=== PATIENT | female | born 1945 | race Caucasian/White ===

== ENCOUNTER 2018-08-05 10:28 | Inpatient (IN) ==
--- NOTE | 2018-08-05 11:02 | DR.GENAD ---
HPI - PCP Primary Care Physician: NFD - Complaint/Symptoms Chief Complaint Doctors Comments: Patient is complaining of a large lesion on her left breast with drainage since [place] about five months ago. States she notice a bump that got larger and started to spread to her right breast with sores that she has been trying to manage at home. states she do not have a local doctor. She denies chiest pain, fever, chills, cold, or cough. Patient states the left breast has started draining more the last two weeks but she did not go to a doctor because she did not want them to think she was looking for pain pills. States her sister or breast cancer when she was in her sixties. Patient denies tobacco or alcohol usage. states her last tetanus was over five years ago. Chief Complaint:: PT C/O WOUND TO HER LEFT BREAST BLEEDING , A LARGE NECROTIC WOUND NOTED AND YELLOW SLOTH, BR Self Treatment fo Chief Complaint: PT C/O WOUND GETTING WORSE OVER THE PAST 1.5 MONTHS AND PT C/O IT STATED A BUMP. AND PT HAS PITTING EDEMA TO HER LEFT HAND ,BR - Nurses notes reviewed Nurses Notes Review: Yes - Source History Provided: Patient - Mode of Arrival Mode of Arrival: Ambulatory - Timing Onset of Chief Complaint: 04/18/18 Came on: Gradually - Duration Duration: Constant How lon Duration: Weeks - Location Location: left breast and chest - Severity Severity: Moderate, Severe - Modifying Factors Worsens:: nothing Improves:: nohting PMH - PMH Past Medical History: No Past Surgical History: No - Family History History of Family Medical Conditions: No - Social History Does patient currently use any type of tobacco product: No Have you used tobacco products in the last 12 months: No Type of Tobacco Use: None Does any household member use tobacco: No Alcohol Use: None Do you use any recreational Drugs:: No Lives With: Family Lives Where: Home - infectious screening In the last 2 months have you had wt loss of >10#?: NO Have you had fever, night sweats or hemotysis?: No Have you traveled outside the country in the last 6 months?: No Isolation: Standard ROS - Review of Systems Constitutional: No Symptoms Reported Eyes: No Symptoms Reported. negative: See HPI, Eye Pain, Blurred Vision, Tearing, Discharge, Photophobia, Diplopia, Other ENTM: No Symptoms Reported Respiratoy: No Symptoms Reported. negative: See HPI, Productive Cough, Non- Productive Cough, Moist Cough, Dry Cough, Hacking Cough, Barking Cough, Brassy Cough, Orthopnea, Short of Breath, Stridor, Wheezing, Hemoptysis, Other Cardiovascular: No Symptoms Reported, Chest Pain Gastrointestinal/Abdominal: No Symptoms Reported. negative: See HPI, Abdominal Pain, Constipation, Diarrhea, Nausea, Vomiting, Food Intolerance, Other Genitourinary: No Symptoms Reported Neurological: No Symptoms Reported Musculoskeletal: No Symptoms Reported Integumentary: No Symptoms Reported, Lesions (left breast necrotic with fowl odor; right breast with multiple red lesions), Wound (left breast necrotic with nipple eroded) Hematologic/Lymphatic: No Symptoms Reported Endocrine: No Symptoms Reported Psychiatric: No Symptoms Reported. negative: See HPI, Anxiety, Depression, Hallucinations, Excessive crying, Suicidal, Other PE - General Limitations: No Limitations General Appearance: Alert, In Distress (moderate) - Head Head Exam: Normal Inspection, Atraumatic, Normocephalic - Eyes Eye exam: Normal Appearance, PERRL, EOMI. negative: Scleral Icterus, Conjunctival Injection, Nystagmus, Miosis, Mydrasis, Periorbital Swelling, Periorbital Tenderness, Other - ENT ENT Exam: Normal Exam, Normal Oropharynx, Normal External Ear Exam, Mucous Membranes Moist, TM's Normal Bilaterally External Ear Exam: Normal External Inspection TM/Canal Exam: Bilateral Normal Nose Exam: Normal Nose Exam Mouth Exam: Normal Inspection. negative: Drooling, Trismus, Lip Swelling, Tongue Elevation, Tongue Swelling, Laceration, Other Throat Exam: Normal Inspection. negative: Tonsillar Erythema, Tonsillomegaly, Tonsillar Exudate, R Peritonsillar Mass, L Peritonsillar Mass, Muffled Voice, Other - Neck Neck Exam: Normal Inspection, Full ROM, Trachea Midline. negative: Tenderness, Meningismus, Lymphadenopathy, Thyromegaly, Other - Chest Chest Inspection: Normal Inspection, Symmetric Chest Wall Rise, Tenderness (xiphoid fullness with harm mass xiphoid area), Rash (left anterior chest wtih 6cm erythematous ulceration with scant bleeding) - Respiratory Respiratory Exam: Normal Lung Sounds Bilat. negative: Accessory Muscle Use, Chest Wall Tenderness, Prolonged Expiratory Phase, Respiratory Distress, Stridor, Other Respiratory Exam: Bilateral Clear to Auscultation - Cardiovascular Cardiovascular Exam: Regular Rate, Normal Rhythm, Normal Heart Sounds - Abdominal Exam Abdominal Exam: Normal Inspection, Normal Bowel Sounds, Soft Abdominal Tenderness: negative: RUQ, RLQ, LUQ, LLQ, Epigastrium, Suprapubic, Diffuse, Mild, Moderate, Severe, Other - Extremities Extremities Exam: Normal Inspection, Full ROM, Normal Capillary Refill, Edema (left hand and arm with edema 2+). negative: Tenderness (left axillary with hard nodes 6-7 cm, firm) - Back Back Exam: Normal Inspection, Full ROM. negative: Tenderness (left axillary nodules with 3 cm ulceration left scapular area) - Neurologic Neurological Exam: Alert, Oriented X3, CN II-XII Intact, Reflexes Normal. negative: Normal Gait (gait not tested) - Psychiatric Psychiatric Exam: Normal Affect, Normal Mood - Skin Skin Exam: Warm, Dry, Intact, Normal Color. negative: Rash (right breast with multiple 3-4 cm ulcerations with erythema; right breast hard, firm; left breast hard, necrotic at base; nipple gone; eschar at base inner left breast; fowl yellow discharge) - Vital Signs Vitals: Temperature 97.5 F Pulse Rate [Right Brachial] 82 Pulse Rate 93 Respiratory Rate 17 Blood Pressure [Right Arm] 187/77 Blood Pressure 207/82 O2 Sat by Pulse Oximetry 99 Course - Reevaluation 1st: Improved - Consultation Called: 12:41 Call Returned: 12:41 (Dr. Bennett to admit) - Education/Counseling Education/Counseling: Patient, Family Educated On: Treatment, Diagnosis, Needs for Follow Up ROR - Labs Reviewed Laboratory Results Reviewed?: Yes (All labs and x-ray results reviewed and discussed with patient) Result Diagrams: 08/05/18 11:35 08/05/18 11:35 - XRAY XRAY Interpreted by: Radiologist (CXR: Cardiomegaly with findings of COPD; necrotic left breast) - Labs Reviewed Laboratory: WBC 11.7 X10^3/uL (3.6-10.0) H 08/05/18 11:35 RBC 4.15 X10^6/uL (3.5-5.4) 08/05/18 11:35 Hgb 12.6 g/dL (12.0-16.0) 08/05/18 11:35 Hct 37.4 % (36.0-47.0) 08/05/18 11:35 MCV 90.2 fL (80.0-100.0) 08/05/18 11:35 MCH 30.4 pg (27.0-34.0) 08/05/18 11:35 MCHC 33.7 g/dL (33.0-35.0) 08/05/18 11:35 RDW 13.6 % (11.6-16.5) 08/05/18 11:35 Plt Count 324 X10^3/uL (150.0-450.0) 08/05/18 11:35 MPV 8.5 fL (7.4-11.0) 08/05/18 11:35 Neut % (Auto) 76.5 % (42.0-75.0) H 08/05/18 11:35 Lymph % (Auto) 11.6 % (21.0-51.0) L 08/05/18 11:35 Carter % (Auto) 11.1 % (0.0-13.0) 08/05/18 11:35 Eos % (Auto) 0.3 % (0.9-2.9) L 08/05/18 11:35 Baso % (Auto) 0.5 % (0.2-1.0) 08/05/18 11:35 Neut # (Auto) 8.9 x10^3/uL (2.2-4.8) H 08/05/18 11:35 Lymph # (Auto) 1.3 X10^3/uL (1.3-2.9) 08/05/18 11:35 Carter # (Auto) 1.3 x10^3/uL (0.3-0.8) H 08/05/18 11:35 Eos # (Auto) 0.0 x10^3/uL (0.0-0.2) 08/05/18 11:35 Baso # (Auto) 0.1 X10^3/uL (0.0-0.1) 08/05/18 11:35 Absolute Nucleated RBC 0.0 /100WBC 08/05/18 11:35 Sodium 139 mmol/L (136-145) 08/05/18 11:35 Corrected Sodium TNP 08/05/18 11:35 Potassium 3.9 mmol/L (3.5-5.1) 08/05/18 11:35 Chloride 103 mmol/L (98-107) 08/05/18 11:35 Carbon Dioxide 23.2 mmol/L (21-32) 08/05/18 11:35 BUN 11 mg/dL (7-18) 08/05/18 11:35 Creatinine 0.99 mg/dL (0.55-1.02) 08/05/18 11:35 Est GFR (MDRD) Af Amer > 60 (>60) 08/05/18 11:35 Est GFR (MDRD) Non-Af 59 (>60) 08/05/18 11:35 Glucose 107 mg/dL (65-99) H 08/05/18 11:35 Lactic Acid 1.4 mmol/L (0.4-2.0) 08/05/18 11:35 Calcium 9.3 mg/dL (8.5-10.1) 08/05/18 11:35 Corrected Calcium 10.0 mg/dL (8.5-10.1) 08/05/18 11:35 Total Bilirubin 0.70 mg/dL (0.2-1.0) 08/05/18 11:35 AST 42 Units/L (15-37) H 08/05/18 11:35 ALT 19 Units/L (12-78) 08/05/18 11:35 Alkaline Phosphatase 92 Units/L (46-116) 08/05/18 11:35 Total Protein 7.6 g/dL (6.4-8.2) 08/05/18 11:35 Albumin 3.1 g/dL (3.4-5.0) L 08/05/18 11:35 Globulin 4.5 g/dL (2.5-4.5) 08/05/18 11:35 Albumin/Globulin Ratio 0.7 Ratio (1.1-2.1) L 08/05/18 11:35 Amylase 28 Units/L (25-115) 08/05/18 11:35 Lipase 125 Units/L (73-393) 08/05/18 11:35 - Diagnosis Discharge Problem: Cellulitis of left breast, Breast lesion, Cardiomegaly, Essential hypertension COPD (chronic obstructive pulmonary disease) Qualifiers: Emphysema type: unspecified - Discharge Plan Disposition: ADMITTED INPATIENT Condition: Stable - Follow ups/Referrals Follow ups/Referrals: NFD,None [Primary Care Provider] - 3 days - Instructions
[2018-08-05] MEDS ORDERED: ADACEL or BOOSTRIX TDaP VACCINE IM ONE ×2 (11:47→11:48)
[2018-08-05 11:58] LABS: BASOPHILS # (AUTO) 0.1 X10^3/uL (0.0-0.1); BASOPHILS % (AUTO) 0.5 % (0.2-1.0); EOSINOPHILS % (AUTO) 0.3 % (0.9-2.9); HEMATOCRIT 37.4 % (36.0-47.0); HEMOGLOBIN 12.6 g/dL (12.0-16.0); LYMPHOCYTES # (AUTO) 1.3 X10^3/uL (1.3-2.9); LYMPHOCYTES % (AUTO) 11.6 % (21.0-51.0); MEAN CORPUSCULAR HEMOGLOBIN 30.4 pg (27.0-34.0); MEAN CORPUSCULAR HGB CONC 33.7 g/dL (33.0-35.0); MEAN CORPUSCULAR VOLUME 90.2 fL (80.0-100.0); MEAN PLATELET VOLUME 8.5 fL (7.4-11.0); MONOCYTES # (AUTO) 1.3 x10^3/uL (0.3-0.8); MONOCYTES % (AUTO) 11.1 % (0.0-13.0); NEUTROPHILS # (AUTO) 8.9 x10^3/uL (2.2-4.8); NEUTROPHILS % (AUTO) 76.5 % (42.0-75.0); PLATELET COUNT 324 X10^3/uL (150.0-450.0); RED BLOOD COUNT 4.15 X10^6/uL (3.5-5.4); RED CELL DISTRIBUTION WIDTH 13.6 % (11.6-16.5); WHITE BLOOD COUNT 11.7 X10^3/uL (3.6-10.0)
[2018-08-05] MEDS ORDERED: NS 1000 ML 1,000 ML IV SCH (12:00)
[2018-08-05] MEDS ORDERED: CATAPRES TAB 0.2 MG ONE (12:08)
[2018-08-05 12:10] LABS: ALANINE AMINOTRANSFERASE 19 Units/L (12-78); ALBUMIN 3.1 g/dL (3.4-5.0); ALKALINE PHOSPHATASE 92 Units/L (46-116); AMYLASE 28 Units/L (25-115); ASPARTATE AMINO TRANSFERASE 42 Units/L (15-37); BLOOD UREA NITROGEN 11 mg/dL (7-18); CALCIUM 9.3 mg/dL (8.5-10.1); CARBON DIOXIDE 23.2 mmol/L (21-32); CHLORIDE 103 mmol/L (98-107); CREATININE 0.99 mg/dL (0.55-1.02); LIPASE 125 Units/L (73-393); SODIUM 139 mmol/L (136-145); TOTAL PROTEIN 7.6 g/dL (6.4-8.2); eGFR NON BLACK RACES 59 (>60)
--- NOTE | 2018-08-05 12:12 | RAD ---
CHEST RADIOGRAPHS PA AND LATERAL VIEWS CLINICAL HISTORY: 73-year-old female with necrotic wound to her left breast COMPARISON: None. FINDINGS: The cardiopericardial silhouette is enlarged with prominent interstitium and perihilar lung markings and mild flattening of the hemidiaphragms. There is no focal consolidation, pleural effusion or pneumothorax. The lungs are well inflated. Pulmonary vascularity is normal. Exaggerated thoracic kyphosis. Imaged osseous structures are intact. Soft tissues are unremarkable. IMPRESSION: 1. Cardiomegaly with findings suggesting COPD. Reported By:
[2018-08-05] MEDS ORDERED: CATAPRES TAB 0.2 MG PO ONE (12:13)
[2018-08-05 12:16] LABS: LACTIC ACID 1.4 mmol/L (0.4-2.0)
[2018-08-05] MEDS ORDERED: CLEOCIN 600 MG IV PREMIX 600 MG/50 ML BAG IV ONE (12:41)
[2018-08-05] MEDS ORDERED: CLEOCIN VIAL 600 MG ONE (12:42)
[2018-08-05] MEDS ORDERED: NS 100 ML IV 100 ML ONE (12:43)
[2018-08-05] MEDS ORDERED: ZOFRAN TAB 4 MG PO PRN (12:44)
[2018-08-05] MEDS ORDERED: MOTRIN TAB 600 MG PO PRN (12:44)
[2018-08-05] MEDS ORDERED: MORPHINE SULFATE INJ 2 MG INJ IVP PRN (12:44)
[2018-08-05 13:06] LABS: BILIRUBIN,URINE NEGATIVE (NEGATIVE); BLOOD/HEMOGLOBIN,URINE NEGATIVE (NEGATIVE); GLUCOSE, URINE NEGATIVE (NEGATIVE); KETONES,URINE 1+ (NEGATIVE); LEUKOCYTE ESTERASE ,URINE NEGATIVE (NEGATIVE); NITRITES,URINE NEGATIVE (NEGATIVE); PROTEIN,URINE NEGATIVE (NEGATIVE); UROBILINOGEN,URINE NORMAL (NORMAL)
[2018-08-05 13:07] LABS: APPEARANCE,URINE CLEAR (CLEAR); COLOR,URINE YELLOW (YELLOW)
[2018-08-05] MEDS: CLEOCIN VIAL 600 MG 300 MG in D5W 50 ML IV 50 ML IV SCH (15:03)
[2018-08-05 15:10] VITALS: BMI 28.5
[2018-08-05] MEDS ORDERED: MERREM VIAL ONE (15:15)
[2018-08-05] MEDS: MERREM VIAL IVP ONE ×2 (15:18→15:19)
[2018-08-05] MEDS: NS 1/2 1000 ML IV 1,000 ML IV SCH (15:19)
[2018-08-05] MEDS: ZOSYN VIAL 3.375 GRAMS 3.375 G in NS 100 ML IV + SPIKE MINIBAG* 100 ML IV SCH ×2 (15:19→22:00)
[2018-08-05] MEDS ORDERED: NS 1/2 1000 ML IV 1,000 ML ONE (15:22)
[2018-08-05] MEDS ORDERED: CLEOCIN 300 MG IV PREMIX 300 MG/50 ML BAG IV ONE (21:10)
[2018-08-06] MEDS: NS 1/2 1000 ML IV 1,000 ML IV SCH ×3 (00:47→14:09)
[2018-08-06] MEDS: CLEOCIN VIAL 600 MG 300 MG in D5W 50 ML IV 50 ML IV SCH (00:48)
[2018-08-06] MEDS ORDERED: CLEOCIN 300 MG IV PREMIX 300 MG/50 ML BAG IV ONE (05:47)
[2018-08-06] MEDS: ZOSYN VIAL 3.375 GRAMS 3.375 G in NS 100 ML IV + SPIKE MINIBAG* 100 ML IV SCH ×3 (05:53→22:00)
[2018-08-06] MEDS: CLEOCIN 300 MG IV PREMIX 300 MG/50 ML BAG IV SCH ×2 (05:53→14:09)
[2018-08-06 06:02] LABS: BASOPHILS # (AUTO) 0.1 X10^3/uL (0.0-0.1); BASOPHILS % (AUTO) 0.7 % (0.2-1.0); EOSINOPHILS # (AUTO) 0.1 x10^3/uL (0.0-0.2); EOSINOPHILS % (AUTO) 1.2 % (0.9-2.9); HEMATOCRIT 34.5 % (36.0-47.0); HEMOGLOBIN 11.7 g/dL (12.0-16.0); LYMPHOCYTES # (AUTO) 1.1 X10^3/uL (1.3-2.9); LYMPHOCYTES % (AUTO) 13.7 % (21.0-51.0); MEAN CORPUSCULAR HEMOGLOBIN 30.7 pg (27.0-34.0); MEAN CORPUSCULAR VOLUME 90.2 fL (80.0-100.0); MEAN PLATELET VOLUME 8.3 fL (7.4-11.0); MONOCYTES # (AUTO) 0.9 x10^3/uL (0.3-0.8); MONOCYTES % (AUTO) 11.7 % (0.0-13.0); NEUTROPHILS # (AUTO) 5.6 x10^3/uL (2.2-4.8); NEUTROPHILS % (AUTO) 72.7 % (42.0-75.0); PLATELET COUNT 275 X10^3/uL (150.0-450.0); RED BLOOD COUNT 3.82 X10^6/uL (3.5-5.4); RED CELL DISTRIBUTION WIDTH 13.9 % (11.6-16.5); WHITE BLOOD COUNT 7.7 X10^3/uL (3.6-10.0)
[2018-08-06 06:07] LABS: ALANINE AMINOTRANSFERASE 14 Units/L (12-78); ALBUMIN 2.6 g/dL (3.4-5.0); ALKALINE PHOSPHATASE 76 Units/L (46-116); ASPARTATE AMINO TRANSFERASE 38 Units/L (15-37); BLOOD UREA NITROGEN 10 mg/dL (7-18); CALCIUM 8.9 mg/dL (8.5-10.1); CARBON DIOXIDE 23.1 mmol/L (21-32); CHLORIDE 107 mmol/L (98-107); CREATININE 0.95 mg/dL (0.55-1.02); SODIUM 140 mmol/L (136-145); TOTAL PROTEIN 6.4 g/dL (6.4-8.2); eGFR NON BLACK RACES > 60 (>60)
[2018-08-06] MEDS ORDERED: NS 1/2 1000 ML IV 1,000 ML ONE ×2 (06:10→16:34)
[2018-08-06] MEDS ORDERED: NS 100 ML IV 100 ML ONE ×2 (13:11→13:21)
--- NOTE | 2018-08-06 16:26 | CT ---
HISTORY: Chest pain. Necrotic breast. Study: CT chest, abdomen and pelvis with contrast. Dose reduction techniques including Automated Exposure Control (AEC) and adjustment of mA and kV were utilized. Comparison: None. Technique: Multiple axial images of the chest, abdomen, and pelvis were obtained from the thoracic inlet to the pubic symphysis after the administration of IV contrast. Findings: There are multiple bilateral breast masses and diffuse skin thickening of both breasts, left greater than right. The largest breast mass is located on the left measuring up to 7 cm in diameter. There is involvement of the pectoralis muscles bilaterally. There are enlarged lymph nodes involving both axilla and lower cervical regions bilaterally. There are several prominent lymph nodes within the anterior mediastinum. There are coronary artery calcifications. There is no pericardial effusion. There are no filling defects of the central pulmonary arterial system. There is atherosclerotic disease of the thoracic aorta which is nonaneurysmal. Evaluation of the lung parenchyma demonstrates multiple subcentimeter pleural based pulmonary nodules on the left with subsegmental atelectasis/scarring in the left lung base. There is a trace pleural effusion on the left. No parenchymal pulmonary nodules or mass lesions are evident. There are nonspecific hypodense areas involving several lower thoracic vertebral bodies. There is focal fatty infiltration of the liver along the falciform ligament. Otherwise, no intrahepatic biliary ductal dilatation or mass lesion is evident. The gallbladder, pancreas, spleen, adrenal glands and kidneys are unremarkable in their CT appearance. There is nonspecific endometrial thickening of the uterus. The urinary bladder is incompletely distended and not optimally evaluated. The appendix is grossly unremarkable. There is a moderate amount of stool throughout the colon with scattered colonic diverticula noted. There is no evidence of acute diverticulitis. There is no small bowel dilatation. There is no intraperitoneal free air or free fluid. There is atherosclerotic disease of the nonaneurysmal abdominal aorta. There are nonspecific hypodense areas involving several lumbar vertebral bodies with several Schmorl's node present as well. There is grade 1 anterolisthesis of L4 on L5 measuring 3 mm which is thought to be on a degenerative basis. IMPRESSION: Multiple bilateral breast masses and diffuse skin thickening of both breasts, left greater than right. There is involvement the pectoralis muscles bilaterally. Findings are compatible with bilateral breast cancer. Bilateral axillary and cervical lymphadenopathy compatible with miryam metastasis. Prominent anterior mediastinal lymph nodes are present as well and may reflect mediastinal involvement. Nonspecific hypodense lesions involving several thoracic and lumbar vertebral bodies for which bony metastasis cannot be excluded. PET-CT may be of further diagnostic benefit. Nonspecific endometrial thickening of the uterus which should be correlated for clinically to exclude an endometrial neoplasm. Reported By:
--- NOTE | 2018-08-06 17:23 | DR.H&P ---
H&P - History & Physical for Day of: H&P Date: 08/05/18 - Chief Complaint Chief Complaint: LEFT BREAST WOUND, MASS - History of Present Illness History of Present Illness: IS A 73 YEAR OLD WHITE FEMALE WHO PRESENTED TO THE ER WITH COMPLAINTS OF A DRAINING WOUND TO HER LEFT BREAST. THERE IS A NECROTIC WOUND WITH YELLOW SLOUGH NOTED TO THE LEFT BREAST. DRAINAGE HAS A FOUL ODOR. PATIENT REPORTED FINDING A LARGE LESION ON HER LEFT BREAST ABOUT FIVE MONTHS AGO. SHE STATED THAT THE LESION GOT LARGER AND THEN SHE NOTICED LESIONS ON HER RIGHT BREAST. SHE DOES NOT HAVE A LOCAL DOCTOR. SHE HAS A FAMILY HISTORY OF CANCER. ON ARRIVAL, VITALS WERE 97.5-93-20-96%-207/82. LABS WERE OBTAINED. ABNORMAL LAB VALUES INCLUDE THE FOLLOWING: WBC 11.7, GLUCOSE 107, AST 42, ALBUMIN 3.1. BLOOD AND WOUND CULTURE OBTAINED. A CHEST XRAY WAS OBTAINED AND REVEALED: CARDIOMEGALY WITH FINDINGS OF COPD. EKG REVEALED SINUS RHYTHM WITH HR 81. SHE WAS GIVEN MEROPENEM 500MG IV X 1, CLEOCIN 600MG IV X 1, CATAPREX 0.2MG PO X 1, A TETANUS VACCINE, AND STARTED ON NORMAL SALINE AT 75ML/HR. BLOOD PRESSURE DECREASED TO 187/77. SHE WAS ADMITTED FOR FURTHER EVALUATION AND TREAMTENT OF LEFT BREAST CELLULITIS, PROBABLE BREAST CANCER, HYPERTENSION, AND COPD. WE WILL CONSULT . SHE WILL BE STARTED ON CLEOCIN 300MG IV Q8H, ZOSYN 3.375G IV TID, AND 1/2NS AT 125ML.HR. WE PLAN TO FOLLOW UP WITH AM LABS, ABDOMEN/PELVIS CT, CHEST CT, AND CONTINUE TO MONITOR. - Past Surgical History Surgical History: No History - Family History Family Medical History: Cancer, [place], Hypertension - Social History Does patient currently use any type of tobacco product: No Have you used tobacco products in the last 12 months: No Type of Tobacco Use: None Does any household member use tobacco: No Alcohol Use: None Drug Use: None - Medications Home Medications: No Known Drug Allergies Allergy (Verified 08/05/18 10:45) CONTINUE taking the following medications No Home Medications 08/05/18 [History] - Review of Systems Constitutional: See HPI, Weakness. denies: Fever, Chills Eyes: No Symptoms Reported ENT: No Symptoms Reported Respiratory: Shortness of Breath Cardiovascular: No Symptoms Reported Gastrointestinal: No Symptoms Reported Genitourinary: No Symptoms Reported Musculoskeletal: See HPI, Other (LEFT BREAST PAIN ) Skin: See HPI, Wound - Physical Exam Vital Signs: Temperature 98.3 F Pulse Rate [Radial] 92 Pulse Rate [Right Brachial] 81 Pulse Rate 93 Respiratory Rate 18 Blood Pressure [Right Arm] 174/72 Blood Pressure 207/82 O2 Sat by Pulse Oximetry 99 Oriented: Normal Eyes: Normal Ear: Normal Nose: Normal Throat: Normal Respiratory: Diminished Throughout Cardiovascular: Normal. negative: S3, S4, Murmur : Normal Auscultation: Bowel Sounds: Normal Palpation: Normal Tenderness: Normal Skin: Red, Tender, Wound (NECROTIC WOUND TO LEFT BREAST WITH YELLOW SLOUGH) Musculoskeletal: Normal Psychiatric: Normal Mood Description: Calm Affect: Normal Speech Pattern: Clear - Assessment/Plan (1) Cellulitis of left breast Status: Acute Plan: WOUND CARE, IV ANTIBIOTICS, WOUND CULTURES, CONSULT GENERAL SURGERY, CONTINUE TO MONTIOR (2) Breast lesion Status: Acute Plan: CONSULT GENERAL SURGERY FOR BIOPSY, CONTINUE TO MONITOR (3) COPD (chronic obstructive pulmonary disease) Qualifiers: Emphysema type: unspecified Status: Acute Plan: CONTINUE TO MONITOR (4) Essential hypertension Status: Acute Plan: CONTINUE TO MONITOR - Allergies Allergies/Adverse Reactions: Allergies Allergy/AdvReac Type Severity Reaction Status Date / Time No Known Drug Allergies Allergy Verified 08/05/18 10:45
[2018-08-07] MEDS: NS 1/2 1000 ML IV 1,000 ML IV SCH ×2 (00:58→11:25)
[2018-08-07 05:26] LABS: BASOPHILS # (AUTO) 0.1 X10^3/uL (0.0-0.1); BASOPHILS % (AUTO) 1.3 % (0.2-1.0); EOSINOPHILS # (AUTO) 0.2 x10^3/uL (0.0-0.2); EOSINOPHILS % (AUTO) 2.3 % (0.9-2.9); HEMATOCRIT 35.6 % (36.0-47.0); HEMOGLOBIN 12.1 g/dL (12.0-16.0); LYMPHOCYTES % (AUTO) 14.6 % (21.0-51.0); MEAN CORPUSCULAR HEMOGLOBIN 30.9 pg (27.0-34.0); MEAN CORPUSCULAR VOLUME 90.9 fL (80.0-100.0); MEAN PLATELET VOLUME 8.6 fL (7.4-11.0); MONOCYTES # (AUTO) 0.9 x10^3/uL (0.3-0.8); MONOCYTES % (AUTO) 13.1 % (0.0-13.0); NEUTROPHILS # (AUTO) 4.6 x10^3/uL (2.2-4.8); NEUTROPHILS % (AUTO) 68.7 % (42.0-75.0); PLATELET COUNT 290 X10^3/uL (150.0-450.0); RED BLOOD COUNT 3.91 X10^6/uL (3.5-5.4); RED CELL DISTRIBUTION WIDTH 13.8 % (11.6-16.5); WHITE BLOOD COUNT 6.8 X10^3/uL (3.6-10.0)
[2018-08-07] MEDS: ZOSYN VIAL 3.375 GRAMS 3.375 G in NS 100 ML IV + SPIKE MINIBAG* 100 ML IV SCH (05:36)
[2018-08-07 05:39] LABS: ALANINE AMINOTRANSFERASE 12 Units/L (12-78); ALBUMIN 2.5 g/dL (3.4-5.0); ALKALINE PHOSPHATASE 78 Units/L (46-116); ASPARTATE AMINO TRANSFERASE 37 Units/L (15-37); BLOOD UREA NITROGEN 8 mg/dL (7-18); CALCIUM 8.8 mg/dL (8.5-10.1); CARBON DIOXIDE 22.3 mmol/L (21-32); CHLORIDE 108 mmol/L (98-107); CREATININE 1.01 mg/dL (0.55-1.02); SODIUM 141 mmol/L (136-145); TOTAL PROTEIN 6.4 g/dL (6.4-8.2); eGFR NON BLACK RACES 57 (>60)
[2018-08-07] MEDS ORDERED: XYLOCAINE 1 % (PLAIN) ONE (08:08)
[2018-08-07] MEDS ORDERED: BACITRACIN VIAL ONE (08:08)
[2018-08-07] MEDS ORDERED: BACTROBAN TOPICAL OINT ONE (08:08)
[2018-08-07] MEDS ORDERED: DILAUDID INJ ONE ×2 (08:49→09:12)
[2018-08-07] MEDS ORDERED: DILAUDID INJ IVP PRN (09:07)
[2018-08-07] MEDS ORDERED: PHENERGAN INJ 25 MG IM PRN (09:07)
[2018-08-07] MEDS ORDERED: BENADRYL INJ 50 MG VIAL IVP PRN (09:07)
[2018-08-07] MEDS ORDERED: REGLAN INJ 10 MG VIAL IVP PRN (09:07)
[2018-08-07] MEDS ORDERED: ZOFRAN INJ 4 MG VIAL IVP PRN (09:07)
[2018-08-07] MEDS ORDERED: NS IRRIGATION 1000 ML ONE (09:20)
[2018-08-07] MEDS ORDERED: DIPRIVAN VIAL ONE (09:32)
[2018-08-07] MEDS ORDERED: VERSED ONE (09:32)
[2018-08-07] MEDS ORDERED: KETALAR ONE (09:32)
[2018-08-07] MEDS ORDERED: PHARMACY CONSULT - DOSE _____ XX SCH (10:00)
[2018-08-07] MEDS: NORCO 5/325 MG TAB PO PRN (10:30)
--- NOTE | 2018-08-07 10:53 | PCM.PROG ---
Progress Note - Progress Note for Day of Date of Exam: 08/06/18 - Subjective Subjective: WAS ADMITTED FOR LEFT BREAST CELLULITIS AND MULTIPLE LUMPS TO BILATERAL BREAST THAT ARE SUSPECTED TO BE BREAST CANCER. THERE IS ULCERATED SKIN AND DRAINING TO THE LEFT BREAST. THERE IS ALSO BLEEDING NOTED. SHE IS NOTED TO HAVE BILATERAL AXILLARY ADENOPATHY WITH FIXED NODES. LEFT UPPER EXTREMITY IS NOTED WITH EDEMA. SHE REPORTS PAIN TO THE LEFT BREAST AND ARM. HER VITALS THIS MORNING ARE 97.9-84-18-99%-178/79. LABS WERE OBTAINED. ABNROMAL LAB VALUES INCLUDE THE FOLLOWING: HGB 11.7, HCT 34.5, GLUCOSE 104, AST 38, ALBUMIN 2.6. WOUND AND BLOOD CULTURES ARE PENDING. WE OBTAINED AN ABDOMEN/PELVIS CT WITH CONTRAST AND A CHEST CT WITH CONTRAST TODAY. REPORTS REVEALED THE FOLLOWING: Mu ltiple bilateral breast masses and diffuse skin thickening of both breasts, left greater than right. There is involvement the pectoralis muscles bilaterally. Findings are compatible with bilateral breast cancer. Bilateral axillary and cervical lymphadenopathy compatible with miryam metastasis. Prominent anterior mediastinal lymph nodes are present as well and may reflect mediastinal involvement. Nonspecific hypodense lesions involving several thoracic and lumbar vertebral bodies for which bony metastasis cannot be excluded. PET-CT may be of further diagnostic benefit. Nonspecific endometrial thickening of the uterus which should be correlated for clinically to exclude an endometrial neoplasm. CONSULTED WITH PATIENT AND PLANS TO TAKE HER TO THE OR IN THE MORNING TO OBTAIN BIOPSIES UNDER IV SEDATION. WE ARE IN AGREEMENT WITH PLAN. WE WILL OBTAIN A BONE SCAN AND PELVIC ULTRASOUND IN THE MORNING. OTHERWISE, WE PLAN TO FOLLOW UP WITH AM LABS AND CONTINUE TO MONITOR. - Past Medical Family Social History Past Med/Fam/Surg Hx: No changes since H&P Allergies: Allergies No Known Drug Allergies Allergy (Verified 08/05/18 10:45) - Review of Systems ROS: No change since H&P - Vital Signs and I&O's Vital Signs: Temperature 97.6 F Pulse Rate [Radial] 85 Pulse Rate [Right Brachial] 71 Pulse Rate 73 Respiratory Rate 18 Blood Pressure [Right Arm] 154/87 Blood Pressure 161/68 O2 Sat by Pulse Oximetry 100 Intake and Output: Intake & Output 08/04/18 08/05/18 08/06/18 08/07/18 11:59 11:59 11:59 11:59 Intake Total 2288 / 2288 3050 / 3050 Balance 2287 / 305 - Physical Exam Oriented: Normal Eyes: Normal Ear: Normal Nose: Normal Throat: Normal Respiratory: Generalized, Diminished Cardiovascular: Normal. negative: S3, S4, Murmur : Normal Auscultation: Bowel Sounds: Normal Palpation: Normal Tenderness: Normal Skin: Red, Tender, Wound (NECROTIC WOUND TO LEFT BREAST WITH YELLOW SLOUGH) Musculoskeletal: Normal Psychiatric: Normal Mood Description: Calm Affect: Normal Speech Pattern: Clear, Appropriate - Laboratory and Diagnostics Result Diagrams: 08/07/18 05:08 08/07/18 05:08 Labs: 08/07/18 08:39 Breast - Left Gram Stain - Final 08/05/18 11:35 Blood Blood Culture - Preliminary 08/05/18 11:35 Blood Blood Culture - Preliminary 08/05/18 11:07 Breast - Left Gram Stain - Final 08/05/18 11:07 Breast - Left Wound Culture - Preliminary [facility] WBC 6.8 X10^3/uL (3.6-10.0) 08/07/18 05:08 RBC 3.91 X10^6/uL (3.5-5.4) 08/07/18 05:08 Hgb 12.1 g/dL (12.0-16.0) 08/07/18 05:08 Hct 35.6 % (36.0-47.0) L 08/07/18 05:08 MCV 90.9 fL (80.0-100.0) 08/07/18 05:08 MCH 30.9 pg (27.0-34.0) 08/07/18 05:08 MCHC 34.0 g/dL (33.0-35.0) 08/07/18 05:08 RDW 13.8 % (11.6-16.5) 08/07/18 05:08 Plt Count 290 X10^3/uL (150.0-450.0) 08/07/18 05:08 MPV 8.6 fL (7.4-11.0) 08/07/18 05:08 Neut % (Auto) 68.7 % (42.0-75.0) 08/07/18 05:08 Lymph % (Auto) 14.6 % (21.0-51.0) L 08/07/18 05:08 [place] % (Auto) 13.1 % (0.0-13.0) H 08/07/18 05:08 Eos % (Auto) 2.3 % (0.9-2.9) 08/07/18 05:08 Baso % (Auto) 1.3 % (0.2-1.0) H 08/07/18 05:08 Neut # (Auto) 4.6 x10^3/uL (2.2-4.8) 08/07/18 05:08 Lymph # (Auto) 1.0 X10^3/uL (1.3-2.9) L 08/07/18 05:08 [place] # (Auto) 0.9 x10^3/uL (0.3-0.8) H 08/07/18 05:08 Eos # (Auto) 0.2 x10^3/uL (0.0-0.2) 08/07/18 05:08 Baso # (Auto) 0.1 X10^3/uL (0.0-0.1) 08/07/18 05:08 Absolute Nucleated RBC 0.0 /100WBC 08/07/18 05:08 INR Target Range - 08/07/18 05:08 INR 1.12 (0.8-1.3) 08/07/18 05:08 Sodium 141 mmol/L (136-145) 08/07/18 05:08 Corrected Sodium TNP 08/07/18 05:08 Potassium 3.9 mmol/L (3.5-5.1) 08/07/18 05:08 Chloride 108 mmol/L (98-107) H 08/07/18 05:08 Carbon Dioxide 22.3 mmol/L (21-32) 08/07/18 05:08 BUN 8 mg/dL (7-18) 08/07/18 05:08 Creatinine 1.01 mg/dL (0.55-1.02) 08/07/18 05:08 Est GFR (MDRD) Af Amer > 60 (>60) 08/07/18 05:08 Est GFR (MDRD) Non-Af 57 (>60) L 08/07/18 05:08 Glucose 103 mg/dL (65-99) H 08/07/18 05:08 Lactic Acid 1.4 mmol/L (0.4-2.0) 08/05/18 11:35 Calcium 8.8 mg/dL (8.5-10.1) 08/07/18 05:08 Corrected Calcium 10.0 mg/dL (8.5-10.1) 08/07/18 05:08 Total Bilirubin 0.60 mg/dL (0.2-1.0) 08/07/18 05:08 AST 37 Units/L (15-37) 08/07/18 05:08 ALT 12 Units/L (12-78) 08/07/18 05:08 Alkaline Phosphatase 78 Units/L (46-116) 08/07/18 05:08 Total Protein 6.4 g/dL (6.4-8.2) 08/07/18 05:08 Albumin 2.5 g/dL (3.4-5.0) L 08/07/18 05:08 Globulin 3.9 g/dL (2.5-4.5) 08/07/18 05:08 Albumin/Globulin Ratio 0.6 Ratio (1.1-2.1) L 08/07/18 05:08 Amylase 28 Units/L (25-115) 08/05/18 11:35 Lipase 125 Units/L (73-393) 08/05/18 11:35 Specimen Type Clean catch urine 08/05/18 12:48 Urine Color Yellow (YELLOW) 08/05/18 12:48 Urine Appearance Clear (CLEAR) 08/05/18 12:48 Urine pH 6.0 (5.0 - 8.0) 08/05/18 12:48 Ur Specific [place] 1.015 (1.000-1.030) 08/05/18 12:48 Urine Protein Negative (NEGATIVE) 08/05/18 12:48 Urine Glucose (UA) Negative (NEGATIVE) 08/05/18 12:48 Urine Ketones 1+ (NEGATIVE) 08/05/18 12:48 Urine Occult Blood Negative (NEGATIVE) 08/05/18 12:48 Urine Nitrite Negative (NEGATIVE) 08/05/18 12:48 Urine Bilirubin Negative (NEGATIVE) 08/05/18 12:48 Urine Urobilinogen Normal (NORMAL) 08/05/18 12:48 Ur Leukocyte Esterase Negative (NEGATIVE) 08/05/18 12:48 Tissue Pathology To follow 08/07/18 08:42 - Plan (1) Cellulitis of left breast Status: Acute Plan: WOUND CARE, IV ANTIBIOTICS, WOUND CULTURES, CONSULT GENERAL SURGERY, CONTINUE TO MONTIOR (2) Breast lesion Status: Acute Plan: CONSULT GENERAL SURGERY FOR BIOPSY, CONTINUE TO MONITOR (3) COPD (chronic obstructive pulmonary disease) Status: Acute Qualifiers: Emphysema type: unspecified Plan: CONTINUE TO MONITOR (4) Essential hypertension Status: Acute Plan: CONTINUE TO MONITOR
--- NOTE | 2018-08-07 10:57 | PCM.PROG ---
Progress Note - Progress Note for Day of Date of Exam: 08/07/18 - Subjective Subjective: WAS ADMITTED FOR LEFT BREAST CELLULITIS AND MULTIPLE LUMPS TO BILATERAL BREAST THAT ARE SUSPECTED TO BE BREAST CANCER. THERE IS ULCERATED SKIN AND DRAINING TO THE LEFT BREAST. THERE IS ALSO BLEEDING NOTED. SHE IS NOTED TO HAVE BILATERAL AXILLARY ADENOPATHY WITH FIXED NODES. LEFT UPPER EXTREMITY IS NOTED WITH EDEMA. SHE CONTINUES TO REPORT PAIN TO THE LEFT BREAST AND ARM. HER VITALS THIS MORNING ARE 97.7-85-18-99%-154/87. LABS WERE OBTAINED. ABNROMAL LAB VALUES INCLUDE THE FOLLOWING: HCT 35.6, CHLORIDE 108, GLUCOSE 103, ALBUMIN 2.5. WOUND CULTURE REVEALS GROWTH OF CITROBACTER KOSERI. ABDOMEN/PELVIS AND CHEST CT REVEALED METASTATIC DISEASE. PLANS TO TAKE HER TO THE OR TODAY TO OBTAIN BIOPSIES UNDER IV SEDATION. WE ARE IN AGREEMENT WITH PLAN. WE WILL OBTAIN A BONE SCAN AND PELVIC ULTRASOUND TODAY. WE WILL CHANGE HER IV ANTIBIOTICS TO INVANZ 1g IV DAILY. OTHERWISE, WE PLAN TO FOLLOW UP WITH AM LABS AND CONTINUE TO MONITOR. - Past Medical Family Social History Past Med/Fam/Surg Hx: No changes since H&P Allergies: Allergies No Known Drug Allergies Allergy (Verified 08/05/18 10:45) - Review of Systems ROS: No change since H&P - Vital Signs and I&O's Vital Signs: Temperature 97.6 F Pulse Rate [Radial] 85 Pulse Rate [Right Brachial] 71 Pulse Rate 73 Respiratory Rate 18 Blood Pressure [Right Arm] 154/87 Blood Pressure 161/68 O2 Sat by Pulse Oximetry 100 Intake and Output: Intake & Output 08/04/18 08/05/18 08/06/18 08/07/18 11:59 11:59 11:59 11:59 Intake Total 2288 / 2288 3050 / 3050 Balance 2288 / 2288 3050 / 3050 - Physical Exam Oriented: Normal Eyes: Normal Ear: Normal Nose: Normal Throat: Normal Respiratory: Generalized, Diminished Cardiovascular: Normal. negative: S3, S4, Murmur : Normal Auscultation: Bowel Sounds: Normal Tenderness: Normal Skin: Red, Tender, Wound (NECROTIC WOUND TO LEFT BREAST WITH YELLOW SLOUGH) Musculoskeletal: Normal Psychiatric: Normal Mood Description: Calm Affect: Normal Speech Pattern: Clear, Appropriate - Laboratory and Diagnostics Result Diagrams: 08/07/18 05:08 08/07/18 05:08 Labs: 08/07/18 08:39 Breast - Left Gram Stain - Final 08/05/18 11:35 Blood Blood Culture - Preliminary 08/05/18 11:35 Blood Blood Culture - Preliminary 08/05/18 11:07 Breast - Left Gram Stain - Final 08/05/18 11:07 Breast - Left Wound Culture - Preliminary Citrobacter Koseri Laboratory WBC 6.8 X10^3/uL (3.6-10.0) 08/07/18 05:08 RBC 3.91 X10^6/uL (3.5-5.4) 08/07/18 05:08 Hgb 12.1 g/dL (12.0-16.0) 08/07/18 05:08 Hct 35.6 % (36.0-47.0) L 08/07/18 05:08 MCV 90.9 fL (80.0-100.0) 08/07/18 05:08 MCH 30.9 pg (27.0-34.0) 08/07/18 05:08 MCHC 34.0 g/dL (33.0-35.0) 08/07/18 05:08 RDW 13.8 % (11.6-16.5) 08/07/18 05:08 Plt Count 290 X10^3/uL (150.0-450.0) 08/07/18 05:08 MPV 8.6 fL (7.4-11.0) 08/07/18 05:08 Neut % (Auto) 68.7 % (42.0-75.0) 08/07/18 05:08 Lymph % (Auto) 14.6 % (21.0-51.0) L 08/07/18 05:08 [place] % (Auto) 13.1 % (0.0-13.0) H 08/07/18 05:08 Eos % (Auto) 2.3 % (0.9-2.9) 08/07/18 05:08 Baso % (Auto) 1.3 % (0.2-1.0) H 08/07/18 05:08 Neut # (Auto) 4.6 x10^3/uL (2.2-4.8) 08/07/18 05:08 Lymph # (Auto) 1.0 X10^3/uL (1.3-2.9) L 08/07/18 05:08 [place] # (Auto) 0.9 x10^3/uL (0.3-0.8) H 08/07/18 05:08 Eos # (Auto) 0.2 x10^3/uL (0.0-0.2) 08/07/18 05:08 Baso # (Auto) 0.1 X10^3/uL (0.0-0.1) 08/07/18 05:08 Absolute Nucleated RBC 0.0 /100WBC 08/07/18 05:08 INR Target Range - 08/07/18 05:08 INR 1.12 (0.8-1.3) 08/07/18 05:08 Sodium 141 mmol/L (136-145) 08/07/18 05:08 Corrected Sodium TNP 08/07/18 05:08 Potassium 3.9 mmol/L (3.5-5.1) 08/07/18 05:08 Chloride 108 mmol/L (98-107) H 08/07/18 05:08 Carbon Dioxide 22.3 mmol/L (21-32) 08/07/18 05:08 BUN 8 mg/dL (7-18) 08/07/18 05:08 Creatinine 1.01 mg/dL (0.55-1.02) 08/07/18 05:08 Est GFR (MDRD) Af Amer > 60 (>60) 08/07/18 05:08 Est GFR (MDRD) Non-Af 57 (>60) L 08/07/18 05:08 Glucose 103 mg/dL (65-99) H 08/07/18 05:08 Lactic Acid 1.4 mmol/L (0.4-2.0) 08/05/18 11:35 Calcium 8.8 mg/dL (8.5-10.1) 08/07/18 05:08 Corrected Calcium 10.0 mg/dL (8.5-10.1) 08/07/18 05:08 Total Bilirubin 0.60 mg/dL (0.2-1.0) 08/07/18 05:08 AST 37 Units/L (15-37) 08/07/18 05:08 ALT 12 Units/L (12-78) 08/07/18 05:08 Alkaline Phosphatase 78 Units/L (46-116) 08/07/18 05:08 Total Protein 6.4 g/dL (6.4-8.2) 08/07/18 05:08 Albumin 2.5 g/dL (3.4-5.0) L 08/07/18 05:08 Globulin 3.9 g/dL (2.5-4.5) 08/07/18 05:08 Albumin/Globulin Ratio 0.6 Ratio (1.1-2.1) L 08/07/18 05:08 Amylase 28 Units/L (25-115) 08/05/18 11:35 Lipase 125 Units/L (73-393) 08/05/18 11:35 Specimen Type Clean catch urine 08/05/18 12:48 Urine Color Yellow (YELLOW) 08/05/18 12:48 Urine Appearance Clear (CLEAR) 08/05/18 12:48 Urine pH 6.0 (5.0 - 8.0) 08/05/18 12:48 Ur Specific [place] 1.015 (1.000-1.030) 08/05/18 12:48 Urine Protein Negative (NEGATIVE) 08/05/18 12:48 Urine Glucose (UA) Negative (NEGATIVE) 08/05/18 12:48 Urine Ketones 1+ (NEGATIVE) 08/05/18 12:48 Urine Occult Blood Negative (NEGATIVE) 08/05/18 12:48 Urine Nitrite Negative (NEGATIVE) 08/05/18 12:48 Urine Bilirubin Negative (NEGATIVE) 08/05/18 12:48 Urine Urobilinogen Normal (NORMAL) 08/05/18 12:48 Ur Leukocyte Esterase Negative (NEGATIVE) 08/05/18 12:48 Tissue Pathology To follow 08/07/18 08:42 - Plan (1) Cellulitis of left breast Status: Acute Plan: WOUND CARE, IV ANTIBIOTICS, WOUND CULTURES, CONSULT GENERAL SURGERY, CONTINUE TO MONTIOR (2) Breast lesion Status: Acute Plan: CONSULT GENERAL SURGERY FOR BIOPSY, CONTINUE TO MONITOR (3) COPD (chronic obstructive pulmonary disease) Status: Acute Qualifiers: Emphysema type: unspecified Plan: CONTINUE TO MONITOR (4) Essential hypertension Status: Acute Plan: CONTINUE TO MONITOR
[2018-08-07] MEDS ORDERED: NS 1/2 1000 ML IV 1,000 ML ONE (11:21)
[2018-08-07] MEDS: INVANZ INJ 1 GM VIAL 1 GM in NS 100 ML IV + SPIKE MINIBAG* 100 ML IV SCH (12:30)
[2018-08-07] MEDS: LOVENOX INJ 40 MG SYR SC SCH ×2 (12:30→14:06)
[2018-08-07] MEDS: TOPROL XL PO SCH (13:47)
--- NOTE | 2018-08-07 15:43 | US ---
HISTORY: Metastatic disease Study: Non obstetric pelvic ultrasound Comparison: CT scan of the abdomen and pelvis done 08/06/2018. Technique: Trans abdominal grayscale and color Doppler imaging of the pelvis is provided. Findings: Neither ovary is identified. The uterus measures 4.98 x 5.14 x 8.53 cm. There is a mildly hypoechoic solid mass present involving the upper endometrial region measuring up to 2.6 cm in size. This may represent an endometrial cancer or endometrial polyp. Endometrial biopsy or D and C is suggested. No evidence of free cul-de-sac fluid is seen. IMPRESSION: 2.6 cm mildly hypoechoic solid mass involving the upper endometrial region. This may represent either an endometrial cancer or endometrial polyp. Endometrial biopsy or D and C is suggested. Reported By:
[2018-08-07] MEDS ORDERED: NORVASC TAB 5 MG ONE (18:06)
[2018-08-07] MEDS: NORVASC TAB 5 MG PO SCH (18:09)
[2018-08-08] MEDS: NS 1/2 1000 ML IV 1,000 ML IV SCH ×4 (00:04→22:37)
[2018-08-08] MEDS ORDERED: NS 1/2 1000 ML IV 1,000 ML ONE ×2 (03:57→19:42)
[2018-08-08 05:23] LABS: BASOPHILS % (AUTO) 0.5 % (0.2-1.0); EOSINOPHILS # (AUTO) 0.1 x10^3/uL (0.0-0.2); EOSINOPHILS % (AUTO) 1.1 % (0.9-2.9); HEMATOCRIT 33.6 % (36.0-47.0); HEMOGLOBIN 11.4 g/dL (12.0-16.0); LYMPHOCYTES # (AUTO) 0.9 X10^3/uL (1.3-2.9); MEAN CORPUSCULAR HEMOGLOBIN 30.8 pg (27.0-34.0); MEAN CORPUSCULAR VOLUME 90.7 fL (80.0-100.0); MEAN PLATELET VOLUME 8.7 fL (7.4-11.0); MONOCYTES % (AUTO) 11.1 % (0.0-13.0); NEUTROPHILS # (AUTO) 6.6 x10^3/uL (2.2-4.8); NEUTROPHILS % (AUTO) 76.3 % (42.0-75.0); PLATELET COUNT 313 X10^3/uL (150.0-450.0); RED BLOOD COUNT 3.71 X10^6/uL (3.5-5.4); RED CELL DISTRIBUTION WIDTH 13.7 % (11.6-16.5); WHITE BLOOD COUNT 8.6 X10^3/uL (3.6-10.0)
[2018-08-08 05:38] LABS: ALANINE AMINOTRANSFERASE 12 Units/L (12-78); ALBUMIN 2.3 g/dL (3.4-5.0); ALKALINE PHOSPHATASE 70 Units/L (46-116); ASPARTATE AMINO TRANSFERASE 46 Units/L (15-37); BLOOD UREA NITROGEN 7 mg/dL (7-18); CALCIUM 8.5 mg/dL (8.5-10.1); CARBON DIOXIDE 21.5 mmol/L (21-32); CHLORIDE 106 mmol/L (98-107); COR CA(FOR HYPOALB) 9.9 mg/dL (8.5-10.1); CREATININE 0.82 mg/dL (0.55-1.02); SODIUM 139 mmol/L (136-145); eGFR NON BLACK RACES > 60 (>60)
--- NOTE | 2018-08-08 09:56 | DR.PROGNOT ---
Hospital Progress Notes - Progress Note for Day of: Progress Note Date: 08/08/18 - Chief Complaint Chief Complaint: post op multiple bilateral breast Bxs and debridement of infected brest ulcers. - Past Medical Family Social History Past Med/Fam/Surg Hx: No changes since H&P Allergies: Allergies No Known Drug Allergies Allergy (Verified 08/05/18 10:45) - Review Of Systems ROS: No change since H&P - Vital Signs Vital Signs: Temperature 97.7 F Pulse Rate [Radial] 81 Pulse Rate [Right Brachial] 71 Pulse Rate 69 Respiratory Rate 18 Blood Pressure [Right Arm] 159/67 Blood Pressure 168/71 O2 Sat by Pulse Oximetry 96 - Physical Exam Oriented: Normal Eyes: Normal Ear: Normal Nose: Normal Throat: Normal Respiratory: Generalized, Diminished Cardiovascular: Normal. negative: S3, S4, Murmur : Normal GI:Auscultation: Normal GI:Palpation: Normal GI: Tenderness: Normal Skin: Red, Tender, Wound (dressing intact , no active bleeding .) Musculoskeletal: Normal Psychiatric: Normal Mood Description: Calm Affect: Normal Speech Pattern: Clear, Appropriate - Laboratory and Diagnostics Result Diagrams: 08/08/18 04:47 08/08/18 04:47 Labs: 08/07/18 08:39 Breast - Left Gram Stain - Final 08/07/18 08:39 Breast - Left Wound Culture - Preliminary 08/05/18 11:07 Breast - Left Gram Stain - Final 08/05/18 11:07 Breast - Left Wound Culture - Preliminary Citrobacter Koseri 08/05/18 11:35 Blood Blood Culture - Preliminary 08/05/18 11:35 Blood Blood Culture - Preliminary Laboratory WBC 8.6 X10^3/uL (3.6-10.0) 08/08/18 04:47 RBC 3.71 X10^6/uL (3.5-5.4) 08/08/18 04:47 Hgb 11.4 g/dL (12.0-16.0) L 08/08/18 04:47 Hct 33.6 % (36.0-47.0) L 08/08/18 04:47 MCV 90.7 fL (80.0-100.0) 08/08/18 04:47 MCH 30.8 pg (27.0-34.0) 08/08/18 04:47 MCHC 34.0 g/dL (33.0-35.0) 08/08/18 04:47 RDW 13.7 % (11.6-16.5) 08/08/18 04:47 Plt Count 313 X10^3/uL (150.0-450.0) 08/08/18 04:47 MPV 8.7 fL (7.4-11.0) 08/08/18 04:47 Neut % (Auto) 76.3 % (42.0-75.0) H 08/08/18 04:47 Lymph % (Auto) 11.0 % (21.0-51.0) L 08/08/18 04:47 [place] % (Auto) 11.1 % (0.0-13.0) 08/08/18 04:47 Eos % (Auto) 1.1 % (0.9-2.9) 08/08/18 04:47 Baso % (Auto) 0.5 % (0.2-1.0) 08/08/18 04:47 Neut # (Auto) 6.6 x10^3/uL (2.2-4.8) H 08/08/18 04:47 Lymph # (Auto) 0.9 X10^3/uL (1.3-2.9) L 08/08/18 04:47 [place] # (Auto) 1.0 x10^3/uL (0.3-0.8) H 08/08/18 04:47 Eos # (Auto) 0.1 x10^3/uL (0.0-0.2) 08/08/18 04:47 Baso # (Auto) 0.0 X10^3/uL (0.0-0.1) 08/08/18 04:47 Absolute Nucleated RBC 0.0 /100WBC 08/08/18 04:47 INR Target Range - 08/07/18 05:08 INR 1.12 (0.8-1.3) 08/07/18 05:08 Sodium 139 mmol/L (136-145) 08/08/18 04:47 Corrected Sodium TNP 08/08/18 04:47 Potassium 3.8 mmol/L (3.5-5.1) 08/08/18 04:47 Chloride 106 mmol/L (98-107) 08/08/18 04:47 Carbon Dioxide 21.5 mmol/L (21-32) 08/08/18 04:47 BUN 7 mg/dL (7-18) 08/08/18 04:47 Creatinine 0.82 mg/dL (0.55-1.02) 08/08/18 04:47 Est GFR (MDRD) Af Amer > 60 (>60) 08/08/18 04:47 Est GFR (MDRD) Non-Af > 60 (>60) 08/08/18 04:47 Glucose 77 mg/dL (65-99) 08/08/18 04:47 Lactic Acid 1.4 mmol/L (0.4-2.0) 08/05/18 11:35 Calcium 8.5 mg/dL (8.5-10.1) 08/08/18 04:47 Corrected Calcium 9.9 mg/dL (8.5-10.1) 08/08/18 04:47 Total Bilirubin 0.40 mg/dL (0.2-1.0) 08/08/18 04:47 AST 46 Units/L (15-37) H 08/08/18 04:47 ALT 12 Units/L (12-78) 08/08/18 04:47 Alkaline Phosphatase 70 Units/L (46-116) 08/08/18 04:47 Total Protein 6.0 g/dL (6.4-8.2) L 08/08/18 04:47 Albumin 2.3 g/dL (3.4-5.0) L 08/08/18 04:47 Globulin 3.7 g/dL (2.5-4.5) 08/08/18 04:47 Albumin/Globulin Ratio 0.6 Ratio (1.1-2.1) L 08/08/18 04:47 Amylase 28 Units/L (25-115) 08/05/18 11:35 Lipase 125 Units/L (73-393) 08/05/18 11:35 Specimen Type Clean catch urine 08/05/18 12:48 Urine Color Yellow (YELLOW) 08/05/18 12:48 Urine Appearance Clear (CLEAR) 08/05/18 12:48 Urine pH 6.0 (5.0 - 8.0) 08/05/18 12:48 Ur Specific [place] 1.015 (1.000-1.030) 08/05/18 12:48 Urine Protein Negative (NEGATIVE) 08/05/18 12:48 Urine Glucose (UA) Negative (NEGATIVE) 08/05/18 12:48 Urine Ketones 1+ (NEGATIVE) 08/05/18 12:48 Urine Occult Blood Negative (NEGATIVE) 08/05/18 12:48 Urine Nitrite Negative (NEGATIVE) 08/05/18 12:48 Urine Bilirubin Negative (NEGATIVE) 08/05/18 12:48 Urine Urobilinogen Normal (NORMAL) 08/05/18 12:48 Ur Leukocyte Esterase Negative (NEGATIVE) 08/05/18 12:48 Tissue Pathology To follow 08/07/18 08:42 - Assessment and Plan 1: advanced ,metastatic bilateral breast ca with skin ulcerations and bilateral axillary adenopathies . may discharge in am and will follow in the office . Pt will be referred to oncology for chemo and radiation Tx . - Problem Patient Problems: Patient Problems Cellulitis of left breast (Acute) N61.0 Breast lesion (Acute) N64.9 COPD (chronic obstructive pulmonary disease) (Acute) J44.9 Cardiomegaly (Acute) I51.7 Essential hypertension (Acute) I10
[2018-08-08] MEDS: LOVENOX INJ 40 MG SYR SC SCH (10:08)
[2018-08-08] MEDS: INVANZ INJ 1 GM VIAL 1 GM in NS 100 ML IV + SPIKE MINIBAG* 100 ML IV SCH (10:08)
[2018-08-08] MEDS: TOPROL XL PO SCH (10:09)
[2018-08-08] MEDS: NORVASC TAB 5 MG PO SCH (10:09)
--- NOTE | 2018-08-08 20:34 | PCM.PROG ---
Progress Note - Progress Note for Day of Date of Exam: 08/08/18 - Subjective Subjective: WAS ADMITTED FOR LEFT BREAST CELLULITIS AND MULTIPLE LUMPS TO BILATERAL BREAST THAT ARE SUSPECTED TO BE BREAST CANCER. SHE IS STATUS POST BILATERAL BREAST BIOPSIES AND DEBRIDEMENT OF INFECTED BREAST ULCERS. A LARGE DRESSING IS NOTED TO CHEST THIS MORNING. IS MONITORING SITE. SHE CONTINUES TO REPORT PAIN TO THE BREAST/CHEST AREA AND ARM, BUT REPORTS IMPROVEMENT SINCE YESTERDAY. HER VITALS THIS MORNING ARE 98.2-86-20-97%-186/71. LABS WERE OBTAINED. ABNORMAL LAB VALUES INCLUDE THE FOLLOWING: HGB 11.4, HCT 33.6, AST 46, TOTAL PROTEIN 6.0, ALBUMIN 2.3, CEA 14.1. WOUND CULTURE REVEALS GROWTH OF CITROBACTER KOSERI. BLOOD CULTURES ARE PENDING. A PELVIS ULTRASOUND WAS OBTAINED YESTERDAY AND REVEALED: 2.6 cm mildly hypoechoic solid mass involving the upper endometrial region. This may represent either an endometrial cancer or endometrial polyp. Endometrial biopsy or D and C is suggested. SHE WILL BE REFERRED TO AN ONCOLOGIST AFTER DISCHARGE FOR POSSIBLE EXTENSIVE CHEMO AND RADIATION. SHE IS CURRENTLY RECEIVING INVANZ 1g IV DAILY AND WOUND CARE. WE WILL CONTINUE WITH CURRENT PLAN OF CARE TODAY. OTHERWISE, WE PLAN TO FOLLOW UP WITH AM LABS AND CONTINUE TO MONITOR. - Past Medical Family Social History Past Med/Fam/Surg Hx: No changes since H&P Allergies: Allergies No Known Drug Allergies Allergy (Verified 08/05/18 10:45) - Review of Systems ROS: No change since H&P - Vital Signs and I&O's Vital Signs: Temperature 98.1 F Pulse Rate [Radial] 80 Pulse Rate [Right Brachial] 71 Pulse Rate 69 Respiratory Rate 20 Blood Pressure [Right Arm] 170/70 Blood Pressure 168/71 O2 Sat by Pulse Oximetry 97 Intake and Output: Intake & Output 08/06/18 08/07/18 08/08/18 08/09/18 11:59 11:59 11:59 11:59 Intake Total 2288 / 2288 3050 / 3050 1640 / 1640 720 / 720 Balance 2288 / 2288 3050 / 3050 1640 / 1640 720 / 720 - Physical Exam Oriented: Normal Eyes: Normal Ear: Normal Nose: Normal Throat: Normal Respiratory: Generalized, Diminished Cardiovascular: Normal. negative: S3, S4, Murmur : Normal Auscultation: Bowel Sounds: Normal Tenderness: Normal Skin: Red, Tender, Wound (dressing intact , no active bleeding .) Musculoskeletal: Normal Psychiatric: Normal Mood Description: Calm Affect: Normal Speech Pattern: Clear, Appropriate - Laboratory and Diagnostics Result Diagrams: 08/08/18 04:47 08/08/18 04:47 Labs: 08/07/18 08:39 Breast - Left Gram Stain - Final 08/07/18 08:39 Breast - Left Wound Culture - Preliminary 08/05/18 11:07 Breast - Left Gram Stain - Final 08/05/18 11:07 Breast - Left Wound Culture - Preliminary Citrobacter Koseri 08/05/18 11:35 Blood Blood Culture - Preliminary 08/05/18 11:35 Blood Blood Culture - Preliminary Laboratory WBC 8.6 X10^3/uL (3.6-10.0) 08/08/18 04:47 RBC 3.71 X10^6/uL (3.5-5.4) 08/08/18 04:47 Hgb 11.4 g/dL (12.0-16.0) L 08/08/18 04:47 Hct 33.6 % (36.0-47.0) L 08/08/18 04:47 MCV 90.7 fL (80.0-100.0) 08/08/18 04:47 MCH 30.8 pg (27.0-34.0) 08/08/18 04:47 MCHC 34.0 g/dL (33.0-35.0) 08/08/18 04:47 RDW 13.7 % (11.6-16.5) 08/08/18 04:47 Plt Count 313 X10^3/uL (150.0-450.0) 08/08/18 04:47 MPV 8.7 fL (7.4-11.0) 08/08/18 04:47 Neut % (Auto) 76.3 % (42.0-75.0) H 08/08/18 04:47 Lymph % (Auto) 11.0 % (21.0-51.0) L 08/08/18 04:47 [place] % (Auto) 11.1 % (0.0-13.0) 08/08/18 04:47 Eos % (Auto) 1.1 % (0.9-2.9) 08/08/18 04:47 Baso % (Auto) 0.5 % (0.2-1.0) 08/08/18 04:47 Neut # (Auto) 6.6 x10^3/uL (2.2-4.8) H 08/08/18 04:47 Lymph # (Auto) 0.9 X10^3/uL (1.3-2.9) L 08/08/18 04:47 [place] # (Auto) 1.0 x10^3/uL (0.3-0.8) H 08/08/18 04:47 Eos # (Auto) 0.1 x10^3/uL (0.0-0.2) 08/08/18 04:47 Baso # (Auto) 0.0 X10^3/uL (0.0-0.1) 08/08/18 04:47 Absolute Nucleated RBC 0.0 /100WBC 08/08/18 04:47 INR Target Range - 08/07/18 05:08 INR 1.12 (0.8-1.3) 08/07/18 05:08 Sodium 139 mmol/L (136-145) 08/08/18 04:47 Corrected Sodium TNP 08/08/18 04:47 Potassium 3.8 mmol/L (3.5-5.1) 08/08/18 04:47 Chloride 106 mmol/L (98-107) 08/08/18 04:47 Carbon Dioxide 21.5 mmol/L (21-32) 08/08/18 04:47 BUN 7 mg/dL (7-18) 08/08/18 04:47 Creatinine 0.82 mg/dL (0.55-1.02) 08/08/18 04:47 Est GFR (MDRD) Af Amer > 60 (>60) 08/08/18 04:47 Est GFR (MDRD) Non-Af > 60 (>60) 08/08/18 04:47 Glucose 77 mg/dL (65-99) 08/08/18 04:47 Lactic Acid 1.4 mmol/L (0.4-2.0) 08/05/18 11:35 Calcium 8.5 mg/dL (8.5-10.1) 08/08/18 04:47 Corrected Calcium 9.9 mg/dL (8.5-10.1) 08/08/18 04:47 Total Bilirubin 0.40 mg/dL (0.2-1.0) 08/08/18 04:47 AST 46 Units/L (15-37) H 08/08/18 04:47 ALT 12 Units/L (12-78) 08/08/18 04:47 Alkaline Phosphatase 70 Units/L (46-116) 08/08/18 04:47 Total Protein 6.0 g/dL (6.4-8.2) L 08/08/18 04:47 Albumin 2.3 g/dL (3.4-5.0) L 08/08/18 04:47 Globulin 3.7 g/dL (2.5-4.5) 08/08/18 04:47 Albumin/Globulin Ratio 0.6 Ratio (1.1-2.1) L 08/08/18 04:47 Amylase 28 Units/L (25-115) 08/05/18 11:35 Lipase 125 Units/L (73-393) 08/05/18 11:35 Carcinoembryonic Ag 14.1 ng/mL (0.0-3.0) H 08/06/18 05:28 CA 125 Antigen 11 U/mL (0-35) 08/06/18 05:28 Specimen Type Clean catch urine 08/05/18 12:48 Urine Color Yellow (YELLOW) 08/05/18 12:48 Urine Appearance Clear (CLEAR) 08/05/18 12:48 Urine pH 6.0 (5.0 - 8.0) 08/05/18 12:48 Ur Specific [place] 1.015 (1.000-1.030) 08/05/18 12:48 Urine Protein Negative (NEGATIVE) 08/05/18 12:48 Urine Glucose (UA) Negative (NEGATIVE) 08/05/18 12:48 Urine Ketones 1+ (NEGATIVE) 08/05/18 12:48 Urine Occult Blood Negative (NEGATIVE) 08/05/18 12:48 Urine Nitrite Negative (NEGATIVE) 08/05/18 12:48 Urine Bilirubin Negative (NEGATIVE) 08/05/18 12:48 Urine Urobilinogen Normal (NORMAL) 08/05/18 12:48 Ur Leukocyte Esterase Negative (NEGATIVE) 08/05/18 12:48 Tissue Pathology To follow 08/07/18 08:42 - Plan (1) Cellulitis of left breast Status: Acute Plan: WOUND CARE, IV ANTIBIOTICS, WOUND CULTURES, CONSULT GENERAL SURGERY, CONTINUE TO MONTIOR (2) Breast lesion Status: Acute Plan: CONSULT GENERAL SURGERY FOR BIOPSY, CONTINUE TO MONITOR (3) COPD (chronic obstructive pulmonary disease) Status: Acute Qualifiers: Emphysema type: unspecified Plan: CONTINUE TO MONITOR (4) Essential hypertension Status: Acute Plan: CONTINUE TO MONITOR
[2018-08-09 05:23] LABS: BASOPHILS # (AUTO) 0.1 X10^3/uL (0.0-0.1); BASOPHILS % (AUTO) 0.7 % (0.2-1.0); EOSINOPHILS # (AUTO) 0.1 x10^3/uL (0.0-0.2); EOSINOPHILS % (AUTO) 1.5 % (0.9-2.9); HEMATOCRIT 31.9 % (36.0-47.0); LYMPHOCYTES # (AUTO) 0.8 X10^3/uL (1.3-2.9); LYMPHOCYTES % (AUTO) 10.3 % (21.0-51.0); MEAN CORPUSCULAR HEMOGLOBIN 30.9 pg (27.0-34.0); MEAN CORPUSCULAR HGB CONC 34.3 g/dL (33.0-35.0); MEAN PLATELET VOLUME 8.4 fL (7.4-11.0); MONOCYTES # (AUTO) 0.8 x10^3/uL (0.3-0.8); MONOCYTES % (AUTO) 11.1 % (0.0-13.0); NEUTROPHILS # (AUTO) 5.8 x10^3/uL (2.2-4.8); NEUTROPHILS % (AUTO) 76.4 % (42.0-75.0); PLATELET COUNT 311 X10^3/uL (150.0-450.0); RED BLOOD COUNT 3.55 X10^6/uL (3.5-5.4); RED CELL DISTRIBUTION WIDTH 13.6 % (11.6-16.5); WHITE BLOOD COUNT 7.6 X10^3/uL (3.6-10.0)
[2018-08-09 05:30] LABS: ALANINE AMINOTRANSFERASE 10 Units/L (12-78); ALBUMIN 2.2 g/dL (3.4-5.0); ALKALINE PHOSPHATASE 71 Units/L (46-116); ASPARTATE AMINO TRANSFERASE 50 Units/L (15-37); BLOOD UREA NITROGEN 7 mg/dL (7-18); CALCIUM 8.6 mg/dL (8.5-10.1); CARBON DIOXIDE 24.4 mmol/L (21-32); CHLORIDE 107 mmol/L (98-107); CREATININE 0.78 mg/dL (0.55-1.02); SODIUM 141 mmol/L (136-145); TOTAL PROTEIN 5.8 g/dL (6.4-8.2); eGFR NON BLACK RACES > 60 (>60)
[2018-08-09] MEDS ORDERED: NS 1/2 1000 ML IV 1,000 ML ONE (05:53)
[2018-08-09] MEDS: NS 1/2 1000 ML IV 1,000 ML IV SCH (06:19)
[2018-08-09] MEDS: NORCO 5/325 MG TAB PO PRN (07:30)
[2018-08-09] MEDS: TOPROL XL PO SCH (08:16)
[2018-08-09] MEDS: INVANZ INJ 1 GM VIAL 1 GM in NS 100 ML IV + SPIKE MINIBAG* 100 ML IV SCH (08:16)
[2018-08-09] MEDS: NORVASC TAB 5 MG PO SCH (08:16)
[2018-08-09] MEDS: LOVENOX INJ 40 MG SYR SC SCH (08:16)
[2018-08-09 12:02] VITALS: BP 148/65
[2018-08-09] MEDS ORDERED: STERILE WATER IRRIGATION ONE (13:55)
--- NOTE | 2018-08-09 13:59 | DR.PROGNOT ---
Hospital Progress Notes - Progress Note for Day of: Progress Note Date: 08/09/18 - Chief Complaint Chief Complaint: post op multiple bilateral breast Bxs and debridement of infected breast ulcers. feeling better today , only mild pain . Bx is not back yet . culture is Staph species - Past Medical Family Social History Past Med/Fam/Surg Hx: No changes since H&P Allergies: Allergies No Known Drug Allergies Allergy (Verified 08/05/18 10:45) - Review Of Systems ROS: No change since H&P - Vital Signs Vital Signs: Temperature 98.3 F Pulse Rate [Radial] 77 Pulse Rate [Right Brachial] 80 Pulse Rate 69 Respiratory Rate 20 Blood Pressure [Right Arm] 148/65 Blood Pressure 168/71 O2 Sat by Pulse Oximetry 98 - Physical Exam Oriented: Normal Eyes: Normal Ear: Normal Nose: Normal Throat: Normal Respiratory: Generalized, Diminished Cardiovascular: Normal. negative: S3, S4, Murmur : Normal GI:Auscultation: Normal GI:Palpation: Normal GI: Tenderness: Normal Skin: Red, Tender, Wound (Lt breast ulcer involving the inferior aspect 8x4cm and large chest wall ulceration on the UIQ .no active bleeding ) Musculoskeletal: Normal Psychiatric: Normal Mood Description: Calm Affect: Normal Speech Pattern: Clear, Appropriate - Laboratory and Diagnostics Result Diagrams: 08/09/18 05:04 08/09/18 05:04 Labs: 08/07/18 08:39 Breast - Left Gram Stain - Final 08/07/18 08:39 Breast - Left Wound Culture - Preliminary 08/05/18 11:07 Breast - Left Gram Stain - Final 08/05/18 11:07 Breast - Left Wound Culture - Final Citrobacter Koseri Staphylococcus Aureus 08/05/18 11:35 Blood Blood Culture - Preliminary 08/05/18 11:35 Blood Blood Culture - Preliminary Laboratory WBC 7.6 X10^3/uL (3.6-10.0) 08/09/18 05:04 RBC 3.55 X10^6/uL (3.5-5.4) 08/09/18 05:04 Hgb 11.0 g/dL (12.0-16.0) L 08/09/18 05:04 Hct 31.9 % (36.0-47.0) L 08/09/18 05:04 MCV 90.0 fL (80.0-100.0) 08/09/18 05:04 MCH 30.9 pg (27.0-34.0) 08/09/18 05:04 MCHC 34.3 g/dL (33.0-35.0) 08/09/18 05:04 RDW 13.6 % (11.6-16.5) 08/09/18 05:04 Plt Count 311 X10^3/uL (150.0-450.0) 08/09/18 05:04 MPV 8.4 fL (7.4-11.0) 08/09/18 05:04 Neut % (Auto) 76.4 % (42.0-75.0) H 08/09/18 05:04 Lymph % (Auto) 10.3 % (21.0-51.0) L 08/09/18 05:04 [place] % (Auto) 11.1 % (0.0-13.0) 08/09/18 05:04 Eos % (Auto) 1.5 % (0.9-2.9) 08/09/18 05:04 Baso % (Auto) 0.7 % (0.2-1.0) 08/09/18 05:04 Neut # (Auto) 5.8 x10^3/uL (2.2-4.8) H 08/09/18 05:04 Lymph # (Auto) 0.8 X10^3/uL (1.3-2.9) L 08/09/18 05:04 [place] # (Auto) 0.8 x10^3/uL (0.3-0.8) 08/09/18 05:04 Eos # (Auto) 0.1 x10^3/uL (0.0-0.2) 08/09/18 05:04 Baso # (Auto) 0.1 X10^3/uL (0.0-0.1) 08/09/18 05:04 Absolute Nucleated RBC 0.0 /100WBC 08/09/18 05:04 INR Target Range - 08/07/18 05:08 INR 1.12 (0.8-1.3) 08/07/18 05:08 Sodium 141 mmol/L (136-145) 08/09/18 05:04 Corrected Sodium TNP 08/09/18 05:04 Potassium 3.9 mmol/L (3.5-5.1) 08/09/18 05:04 Chloride 107 mmol/L (98-107) 08/09/18 05:04 Carbon Dioxide 24.4 mmol/L (21-32) 08/09/18 05:04 BUN 7 mg/dL (7-18) 08/09/18 05:04 Creatinine 0.78 mg/dL (0.55-1.02) 08/09/18 05:04 Est GFR (MDRD) Af Amer > 60 (>60) 08/09/18 05:04 Est GFR (MDRD) Non-Af > 60 (>60) 08/09/18 05:04 Glucose 95 mg/dL (65-99) 08/09/18 05:04 Lactic Acid 1.4 mmol/L (0.4-2.0) 08/05/18 11:35 Calcium 8.6 mg/dL (8.5-10.1) 08/09/18 05:04 Corrected Calcium 10.0 mg/dL (8.5-10.1) 08/09/18 05:04 Total Bilirubin 0.40 mg/dL (0.2-1.0) 08/09/18 05:04 AST 50 Units/L (15-37) H 08/09/18 05:04 ALT 10 Units/L (12-78) L 08/09/18 05:04 Alkaline Phosphatase 71 Units/L (46-116) 08/09/18 05:04 Total Protein 5.8 g/dL (6.4-8.2) L 08/09/18 05:04 Albumin 2.2 g/dL (3.4-5.0) L 08/09/18 05:04 Globulin 3.6 g/dL (2.5-4.5) 08/09/18 05:04 Albumin/Globulin Ratio 0.6 Ratio (1.1-2.1) L 08/09/18 05:04 Amylase 28 Units/L (25-115) 08/05/18 11:35 Lipase 125 Units/L (73-393) 08/05/18 11:35 Carcinoembryonic Ag 14.1 ng/mL (0.0-3.0) H 08/06/18 05:28 CA 125 Antigen 11 U/mL (0-35) 08/06/18 05:28 Specimen Type Clean catch urine 08/05/18 12:48 Urine Color Yellow (YELLOW) 08/05/18 12:48 Urine Appearance Clear (CLEAR) 08/05/18 12:48 Urine pH 6.0 (5.0 - 8.0) 08/05/18 12:48 Ur Specific [place] 1.015 (1.000-1.030) 08/05/18 12:48 Urine Protein Negative (NEGATIVE) 08/05/18 12:48 Urine Glucose (UA) Negative (NEGATIVE) 08/05/18 12:48 Urine Ketones 1+ (NEGATIVE) 08/05/18 12:48 Urine Occult Blood Negative (NEGATIVE) 08/05/18 12:48 Urine Nitrite Negative (NEGATIVE) 08/05/18 12:48 Urine Bilirubin Negative (NEGATIVE) 08/05/18 12:48 Urine Urobilinogen Normal (NORMAL) 08/05/18 12:48 Ur Leukocyte Esterase Negative (NEGATIVE) 08/05/18 12:48 Tissue Pathology To follow 08/07/18 08:42 - Assessment and Plan 1: advanced ,metastatic bilateral breast ca with skin ulcerations and bilateral axillary adenopathies . may discharge in am and will follow in the office . Pt will be referred to oncology for chemo and radiation Tx . visiting nurse will see Pt and change dressing . - Problem Patient Problems: Patient Problems Cellulitis of left breast (Acute) N61.0 Breast lesion (Acute) N64.9 COPD (chronic obstructive pulmonary disease) (Acute) J44.9 Cardiomegaly (Acute) I51.7 Essential hypertension (Acute) I10
== END 2018-08-09 15:05 | disposition home or self-care (01) | DRG 598 ==
LOC: ER 10:39 → MED/SURG 12:42
PROVIDERS: ADMIT Internal Medicine; ATTEND Internal Medicine
DX: C50.911 Malignant neoplasm of unspecified site of right female breast; B95.7 Other staphylococcus as the cause of diseases classified elsewhere; N63.0 Unspecified lump in unspecified breast; R59.0 Localized enlarged lymph nodes; B96.89 Other specified bacterial agents as the cause of diseases classified elsewhere; C50.912 Malignant neoplasm of unspecified site of left female breast; I11.9 Hypertensive heart disease without heart failure; R60.0 Localized edema; C77.3 Secondary and unspecified malignant neoplasm of axilla and upper limb lymph nodes; J44.9 Chronic obstructive pulmonary disease, unspecified; R06.02 Shortness of breath
CPT/HCPCS: 36415; 71020; 71046; 71260; 74177; 76856; 80053; 81003; 82150; 82378; 83605; 83690; 85025; 85610; 86304; 86316; 87040; 87070; 87075; 87077; 87186; 87205; 88305; 88311; 88312; 90715; 93005; 96365; 96367; 96372; 96374; 99284; A4216; A4222; J3490; S0077; A9503; J1170; J1335; J1650; J2185; J2250; J2543; J2704; J7030; J7050